=== PATIENT | female | born 1960 | race Caucasian/White ===

== ENCOUNTER 2024-04-23 09:45 | Emergency (ER) | payer OTHER | END 2024-04-23 12:36 | disposition home or self-care (01) | LOC: CSHERS 09:45 | PROC: 0DTJ4ZZ Resection of Appendix, Percutaneous Endoscopic Approach (ICD-10-PCS; principal; 2024-04-23) | DX: K35.80 Unspecified acute appendicitis (principal); I10 Essential (primary) hypertension; Z79.899 Other long term (current) drug therapy | CPT/HCPCS: 74177; 80053; 81001; 83690; 85025; 93005; 96374; 96375; A4649; C1713; J0171; J0360; J0665; J1100; J1885; J2001; J2405; J2543; J2704; J3010; Q9967 ==